=== PATIENT | male | born 1955 | race Caucasian/White ===

== ENCOUNTER 2022-08-08 17:31 | Emergency (ER) | payer MEDICARE, OTHER ==
--- NOTE | 2022-08-08 17:51 | ERPHSYRPT ---
- History of Present Illness Historian: patient Exam Limitations: no limitations Timing/Duration: day(s) (3) Activities at Onset: none Severity of Pain-Max: none Severity of Pain-Current: none Associated Symptoms: shortness of breath, weakness, No chest pain, No nausea, No syncope Previous symptoms: same symptoms as today, recent hospitalization <TASNEEM BAUER - Last Filed: 08/08/22 19:28> <VIC NAVARRETE - Last Filed: 08/08/22 21:47> - History of Present Illness Time Seen by Provider: 08/08/22 17:51 Physician History: 67-year-old male presents emergency room with bloody stools since being discharged from [facility] 2 days ago for an upper GI bleed. Patient underwent EGD that showed no active bleeding and was placed on Protonix daily with outpatient follow-up. She has continued to have bloody stools since discharge and over the past 2 days has become increasingly short of breath without chest pain. He does take Xarelto for atrial fibrillation. Patient denies any dizziness or lightheadedness at this time. (TASNEEM BAUER) Allergies/Adverse Reactions: sulfamethoxazole [From Bactrim] Allergy (Verified 08/08/22 17:41) trimethoprim [From Bactrim] Allergy (Verified 08/08/22 17:41) Home Medications: Atorvastatin Calcium [Lipitor 40Mg] 40 mg PO HS 08/08/22 [History] Cetirizine HCl [Zyrtec] 10 mg PO DAILY 08/08/22 [History] Digoxin 250 mcg PO DAILY 08/08/22 [History] Fenofibrate 160 mg PO HS 08/08/22 [History] Lisinopril/Hydrochlorothiazide [Lisinopril-Hctz 20-25 mg Tab] 0.5 tab PO DAILY 08/08/22 [History] Multivitamin [Multivitamins] 1 tab PO DAILY 08/08/22 [History] Niacin (Inositol Niacinate) [Niacin 500 mg Capsule] 500 mg PO HS 08/08/22 [History] PANTOPRAZOLE 40 mg Tablet [Protonix 40MG Tablet] 40 mg PO DAILY 08/08/22 [History] Primidone 250 mg PO TID 08/08/22 [History] Propranolol HCl [Propranolol HCl ER] 60 mg PO DAILY 08/08/22 [History] Rivaroxaban 10 mg Tablet [Xarelto 10 mg Tablet] 20 mg PO HS 08/08/22 [History] dilTIAZem HCL [Diltiazem ER] 240 mg PO DAILY 08/08/22 [History] - Review of Systems Constitutional: No Symptoms Eyes: No Symptoms Ears, Nose, & Throat: No Symptoms Respiratory: Dyspnea on Exertion (CASAS) Cardiac: No Symptoms Abdominal/Gastrointestinal: Melena, Appetite Changes Genitourinary Symptoms: No Symptoms Musculoskeletal: No Symptoms Skin: No Symptoms Neurological: No Symptoms Psychological: No Symptoms Endocrine: No Symptoms Hematologic/Lymphatic: Anemia Immunological/Allergic: No Symptoms All Other Systems: Reviewed and Negative <TASNEEM BAUER - Last Filed: 08/08/22 19:28> - Physical Exam General Appearance: no apparent distress Eye Exam: pale conjunctivae Ears, Nose, Throat Exam: normal ENT inspection Neck Exam: normal inspection, full range of motion Respiratory Exam: normal breath sounds, lungs clear, airway intact, No respiratory distress Cardiovascular Exam: regular rate/rhythm, normal peripheral pulses, capillary refill <2 sec Gastrointestinal/Abdomen Exam: soft, normal bowel sounds, No tenderness Extremity Exam: normal inspection, normal range of motion, No swelling, No tenderness Neurologic Exam: alert, oriented x 3, cooperative Skin Exam: warm, dry, pale SpO2 Interpretation: normal O2 Delivery: Room Air <TASNEEM BAUER - Last Filed: 08/08/22 19:28> - Nursing Vital Signs Nursing Vital Signs: Initial Vital Signs Temperature 98.4 F 08/08/22 17:46 Pulse Rate 92 H 08/08/22 17:46 Respiratory Rate 22 08/08/22 17:46 Blood Pressure 152/71 08/08/22 17:46 O2 Sat by Pulse Oximetry 97 08/08/22 17:46 Pain Scale Pain Intensity 4 - Course Nursing assessment & vital signs reviewed: Yes <TASNEEM BAUER - Last Filed: 08/08/22 19:28> Ordered Tests: Active Orders 24 hr Category Date Time Status AMA [Release AMA] OM.NOW Care 08/08/22 21:33 Active Research Dietitian STAT Care 08/08/22 17:52 Active IV Insertion STAT Care 08/08/22 17:51 Active IV Insertion-2nd Peripheral STAT Care 08/08/22 17:51 Active CBC W DIFF Stat Lab 08/08/22 17:55 Completed CMP Stat Lab 08/08/22 17:55 Completed Lactic Acid Stat Lab 08/08/22 18:10 Completed PROTIME WITH INR Stat Lab 08/08/22 17:55 Completed PTT Stat Lab 08/08/22 17:55 Completed UA W/RFX UR CULTURE Stat Lab 08/08/22 17:55 Completed Medication Summary Discontinued Medications Generic Name Dose Route Start Last Admin Trade Name Roseanne PRN Reason Stop Dose Admin Pantoprazole Sodium 40 mg 08/08/22 17:57 08/08/22 18:07 Pantoprazole 40 Mg Vial IV 08/08/22 17:58 40 mg STAT ONE Administration Pantoprazole Sodium Confirm 08/08/22 18:03 Pantoprazole 40 Mg Vial Administered 08/08/22 18:04 Dose 40 mg IV .[employer] ONE Lab/Rad Data: Laboratory Result Diagrams 08/08/22 17:55 08/08/22 17:55 Laboratory Results 08/08/22 08/08/22 08/08/22 Range/Units 18:10 17:55 17:55 WBC (4.0-10.5) x10^3/uL RBC (4.1-5.6) x10^6/uL Hgb (12.5-18.0) g/dL Hct (42-50) % MCV (78-100) fL MCH (26-32) pg MCHC (32-36) g/dL RDW (11.5-14.0) % Plt Count (150-450) x10^3/uL MPV (7.5-11.0) fL Gran % (36.0-66.0) % Immature Gran % (Auto) (0.00-0.4) % Nucleat RBC Rel Count (0.00-0.1) % Eos # (Auto) (0-0.5) x10^3/uL Immature Gran # (Auto) (0.00-0.03) x10^3u/L Absolute Lymphs (auto) (1.0-4.6) x10^3/uL Absolute Monos (auto) (0.0-1.3) x10^3/uL Absolute Nucleated RBC (0.00-0.01) x10^3u/L Lymphocytes % (24.0-44.0) % Monocytes % (0.0-12.0) % Eosinophils % (0.00-5.0) % Basophils % (0.0-0.4) % Absolute Granulocytes (1.4-6.9) x10^3/uL Basophils # (0-0.4) x10^3/uL PT (9.4-12.5) SECONDS INR (0.8-3.0) APTT (25.1-36.5) SECONDS Sodium (137-145) mmol/L Potassium (3.5-5.1) mmol/L Chloride (98-107) mmol/L Carbon Dioxide (22-30) mmol/L Anion Gap (5-15) MEQ/L BUN (9-20) mg/dL Creatinine (0.66-1.25) mg/dL Estimated GFR ML/MIN Glucose (74-106) mg/dL Lactic Acid 1.3 (0.4-2.0) Calcium (8.4-10.2) mg/dL Total Bilirubin (0.2-1.3) mg/dL AST (17-59) U/L ALT (0-50) U/L Alkaline Phosphatase (38-126) U/L Serum Total Protein (6.3-8.2) g/dL Albumin (3.5-5.0) g/dL Urine Color (Yellow) Urine Appearance (Clear) Urine pH (4.6-8.0) Ur Specific [place] (1.005-1.030) Urine Protein (Negative) Urine Glucose (UA) (Negative) mg/dL Urine Ketones (Negative) Urine Blood (Negative) Urine Nitrite (Negative) Urine Bilirubin (Negative) Urine Urobilinogen (0.2) mg/dL Ur Leukocyte Esterase (Negative) U Hyaline Cast (Auto) (0-2) /LPF Urine Microscopic RBC (0-5) /HPF Urine Microscopic WBC (0-5) /HPF Ur Epithelial Cells (None Seen) /HPF Urine Bacteria (None Seen) /HPF Urine Culture Reflexed (NO) ABO Group O Rh Factor POSITIVE Antibody Screen NEGATIVE (NEGATIVE) Crossmatch COMPATIBLE COMPATIBLE (COMPATIBLE) 08/08/22 08/08/22 08/08/22 Range/Units 17:55 17:55 17:55 WBC 4.9 (4.0-10.5) x10^3/uL RBC 2.21 L (4.1-5.6) x10^6/uL Hgb 6.8 L* (12.5-18.0) g/dL Hct 21.0 L (42-50) % MCV 95.0 (78-100) fL MCH 30.8 (26-32) pg MCHC 32.4 (32-36) g/dL RDW 15.7 H (11.5-14.0) % Plt Count 356 (150-450) x10^3/uL MPV 10.0 (7.5-11.0) fL Gran % 45.8 (36.0-66.0) % Immature Gran % (Auto) 0.8 H (0.00-0.4) % Nucleat RBC Rel Count 1.2 H (0.00-0.1) % Eos # (Auto) 0.14 (0-0.5) x10^3/uL Immature Gran # (Auto) 0.04 H (0.00-0.03) x10^3u/L Absolute Lymphs (auto) 1.66 (1.0-4.6) x10^3/uL Absolute Monos (auto) 0.74 (0.0-1.3) x10^3/uL Absolute Nucleated RBC 0.06 H (0.00-0.01) x10^3u/L Lymphocytes % 34.1 (24.0-44.0) % Monocytes % 15.2 H (0.0-12.0) % Eosinophils % 2.9 (0.00-5.0) % Basophils % 1.2 (0.0-0.4) % Absolute Granulocytes 2.23 (1.4-6.9) x10^3/uL Basophils # 0.06 (0-0.4) x10^3/uL PT 10.7 (9.4-12.5) SECONDS INR 0.98 (0.8-3.0) APTT 21.5 L (25.1-36.5) SECONDS Sodium 139 (137-145) mmol/L Potassium 3.5 (3.5-5.1) mmol/L Chloride 104 (98-107) mmol/L Carbon Dioxide 25 (22-30) mmol/L Anion Gap 12.4 (5-15) MEQ/L BUN 18 (9-20) mg/dL Creatinine 0.76 (0.66-1.25) mg/dL Estimated GFR > 60.0 ML/MIN Glucose 107 H (74-106) mg/dL Lactic Acid (0.4-2.0) Calcium 8.9 (8.4-10.2) mg/dL Total Bilirubin 0.20 (0.2-1.3) mg/dL AST 36 (17-59) U/L ALT 32 (0-50) U/L Alkaline Phosphatase 36 L (38-126) U/L Serum Total Protein 6.8 (6.3-8.2) g/dL Albumin 3.9 (3.5-5.0) g/dL Urine Color (Yellow) Urine Appearance (Clear) Urine pH (4.6-8.0) Ur Specific [place] (1.005-1.030) Urine Protein (Negative) Urine Glucose (UA) (Negative) mg/dL Urine Ketones (Negative) Urine Blood (Negative) Urine Nitrite (Negative) Urine Bilirubin (Negative) Urine Urobilinogen (0.2) mg/dL Ur Leukocyte Esterase (Negative) U Hyaline Cast (Auto) (0-2) /LPF Urine Microscopic RBC (0-5) /HPF Urine Microscopic WBC (0-5) /HPF Ur Epithelial Cells (None Seen) /HPF Urine Bacteria (None Seen) /HPF Urine Culture Reflexed (NO) ABO Group Rh Factor Antibody Screen (NEGATIVE) Crossmatch (COMPATIBLE) 08/08/22 Range/Units 17:55 WBC (4.0-10.5) x10^3/uL RBC (4.1-5.6) x10^6/uL Hgb (12.5-18.0) g/dL Hct (42-50) % MCV (78-100) fL MCH (26-32) pg MCHC (32-36) g/dL RDW (11.5-14.0) % Plt Count (150-450) x10^3/uL MPV (7.5-11.0) fL Gran % (36.0-66.0) % Immature Gran % (Auto) (0.00-0.4) % Nucleat RBC Rel Count (0.00-0.1) % Eos # (Auto) (0-0.5) x10^3/uL Immature Gran # (Auto) (0.00-0.03) x10^3u/L Absolute Lymphs (auto) (1.0-4.6) x10^3/uL Absolute Monos (auto) (0.0-1.3) x10^3/uL Absolute Nucleated RBC (0.00-0.01) x10^3u/L Lymphocytes % (24.0-44.0) % Monocytes % (0.0-12.0) % Eosinophils % (0.00-5.0) % Basophils % (0.0-0.4) % Absolute Granulocytes (1.4-6.9) x10^3/uL Basophils # (0-0.4) x10^3/uL PT (9.4-12.5) SECONDS INR (0.8-3.0) APTT (25.1-36.5) SECONDS Sodium (137-145) mmol/L Potassium (3.5-5.1) mmol/L Chloride (98-107) mmol/L Carbon Dioxide (22-30) mmol/L Anion Gap (5-15) MEQ/L BUN (9-20) mg/dL Creatinine (0.66-1.25) mg/dL Estimated GFR ML/MIN Glucose (74-106) mg/dL Lactic Acid (0.4-2.0) Calcium (8.4-10.2) mg/dL Total Bilirubin (0.2-1.3) mg/dL AST (17-59) U/L ALT (0-50) U/L Alkaline Phosphatase (38-126) U/L Serum Total Protein (6.3-8.2) g/dL Albumin (3.5-5.0) g/dL Urine Color Yellow (Yellow) Urine Appearance Clear (Clear) Urine pH 5.5 (4.6-8.0) Ur Specific [place] 1.025 (1.005-1.030) Urine Protein Negative (Negative) Urine Glucose (UA) Negative (Negative) mg/dL Urine Ketones Trace A (Negative) Urine Blood Negative (Negative) Urine Nitrite Negative (Negative) Urine Bilirubin Negative (Negative) Urine Urobilinogen 0.2 (0.2) mg/dL Ur Leukocyte Esterase Negative (Negative) U Hyaline Cast (Auto) NONE SEEN (0-2) /LPF Urine Microscopic RBC 0-2 (0-5) /HPF Urine Microscopic WBC 0-2 (0-5) /HPF Ur Epithelial Cells None Seen (None Seen) /HPF Urine Bacteria None Seen (None Seen) /HPF Urine Culture Reflexed NO (NO) ABO Group Rh Factor Antibody Screen (NEGATIVE) Crossmatch (COMPATIBLE) - Progress Progress: unchanged <TASNEEM BAUER - Last Filed: 08/08/22 19:28> - Progress Counseled pt/family regarding: lab results, diagnosis <VIC NAVARRETE - Last Filed: 08/08/22 21:47> - Progress Progress Note: Patient's initial hemoglobin was 6.8 with hematocrit of 21. Patient was typed and screened on arrival so 2 units of packed red blood cells were ordered for transfusion. Patient would like to remain at this facility for admission. (TASNEEM BAUER) Patient endorsed to Dr. Navarrete at approximately [address] Navarrete advised to speak to Dr. Lezama to see if he is willing to accept consultation/admission. Spoke to Dr. Lezama at 9:[address] Lezama declined consultation advised transfer to [facility]. Dr. Lezama feels that patient may need cardiology service to help adjust his Xarelto which he is on for atrial fibrillation. He is also concerned regarding the profound anemia potentially causing angina/ischemia and a known cardiac patient. We do not have cardiology services here he advised transfer to [place]. We contacted [facility]. Unit states the wait is 1.5 days at the earliest. Patient and decided that they would drive themselves to [place] ER for admission. They have decided to leave AGAINST MEDICAL ADVICE. Patient is of sound mind. P atient is appropriate to make informed and independent medical decisions. Patient understands that leaving AGAINST MEDICAL ADVICE can result in delayed diagnosis, increased risk of morbidity, mortality, short and long-term disability including . In spite of these risks, patient has decided to leave AGAINST MEDICAL ADVICE. Patient understands that he may return to our ED at any point if he reconsiders. Patient agrees to follow-up with his or her primary care doctor within 48 hours for reevaluation. Patient voices no other complaints or concerns at this time. We will release patient AGAINST MEDICAL ADVICE per their request. 08/08/22 21:34 Patient is 67-year-old male presents to our ED for evaluation of rectal bleeding during bowel movements. Patient recently discharged from [facility] 2 days ago for melanotic stools. Patient presents to our ED due to worsening shortness of breath. Testing includes CBC CMP. CBC reveals a hemoglobin of 6.8. CBC noncontributory. Lactic acid within normal limits. Coags within normal limits. Urinalysis negative. Patient received a dose of pantoprazole IV. Type and screen ordered. Patient has yet to receive blood products. Patient will leave our hospital AMA and drive himself to [facility]. at bedside is a nurse at [facility]. she voices no other complaints or concerns at this time. Patient is diagnosis is lower GI bleed and symptomatic anemia. Complexity of problem addressed is high, severe exacerbation of GI bleed threatening bodily function. Complex of data reviewed and analyzed is extensive. Test ordered test reviewed and analyzed. Clinical correlation between laboratory findings and clinical findings completed. It appears that patient's shortness of breath is due to the profound anemia caused by lower GI bleed. Plan of care discussed with Dr. Omari Lezama of general surgery who advises transfer to higher level of care. [facility] unable to accommodate our patient the patient will leave our facility AGAINST MEDICAL ADVICE and drive himself to [facility]. Risk of complication and or risk morbidity/mortality patient management is moderate. Patient received IV pantoprazole for lower GI bleed. Patient will leave AMA. Vital stable. Plan to leave AMA was determined by patient and his . No social determinants of health present to impede follow-up or presentation to [facility]. Patient discharged AGAINST MEDICAL ADVICE prior to blood transfusion. Portions of this note were created with voice recognition technology. There may be grammatical, spelling, punctuation or sound alike errors 08/08/22 21:39 (VIC NAVARRETE) <TASNEEM BAUER - Last Filed: 08/08/22 19:28> - Departure Departure Disposition: AMA Critical Care Time: No <VIC NAVARRETE - Last Filed: 08/08/22 21:47> - Departure Clinical Impression: Symptomatic anemia, Lower GI bleed Condition: Stable Referrals: DELL MCCONNELL MD [Primary Care Provider] - Follow up/PCP as directed Additional Instructions: Discharge/Care Plan KARTHIK LANDEROS was seen on 08/08/22 in the Emergency Room. The patient was counseled regarding Diagnosis,Lab results, Imaging studies, need for follow up and when to return to the Emergency Room. Prescriptions given: Discharge Note I have spoken with the patient and/or caregivers. I have explained the patient's condition, diagnosis and treatment plan based on the information available to me at this time. I have answered the patient's and/or caregiver's questions and addressed any concerns. The patient and/or caregivers have as good understanding of the patient's diagnosis, condition and treatment plan as can be expected at this point. The vital signs have been stable. The patient's condition is stable and appropriate for discharge from the emergency department. The patient will pursue further outpatient evaluation with the primary care physician or other designated or consulting physician as outlined in the discharge instructions. The patient and/or caregivers are agreeable to this plan of care and follow-up instructions have been explained in detail. The patient and/or caregivers have received these instruction. The patient/and or caregivers are aware that any significant change in condition or worsening of symptoms should prompt an immediate return to this or the closest emergency department or call 911.
[2022-08-08] MEDS ORDERED: PROTONIX 40 MG IV IV ONE ×2 (17:57→18:03)
[2022-08-08 18:10] LABS: Absolute Neutrophil Ct (ANC) 2.23 x10^3/uL (1.4-6.9); BASOPHIL % 1.2 % (0.0-0.4); Basophil (Absolute #) 0.06 x10^3/uL (0-0.4); Eosinophil % 2.9 % (0.00-5.0); Eosinophil (Absolute #) 0.14 x10^3/uL (0-0.5); IMMATURE GRAN # 0.04 x10^3u/L (0.00-0.03); IMMATURE GRAN % 0.8 % (0.00-0.4); Lymphocyte (Absolute #) 1.66 x10^3/uL (1.0-4.6); Lymphocytes % 34.1 % (24.0-44.0); Mean Corpuscular Hemoglobin 30.8 pg (26-32); Mean Corpuscular Hgb Concent. 32.4 g/dL (32-36); Monocyte (Absolute #) 0.74 x10^3/uL (0.0-1.3); Monocytes % 15.2 % (0.0-12.0); NUCLEATED RBC # 0.06 x10^3u/L (0.00-0.01); NUCLEATED RBC % 1.2 % (0.00-0.1); Neutrophil % 45.8 % (36.0-66.0); Platelet Count 356 x10^3/uL (150-450); Red Blood Count 2.21 x10^6/uL (4.1-5.6); Red Cell Distribution Width 15.7 % (11.5-14.0); White Blood Count 4.9 x10^3/uL (4.0-10.5)
[2022-08-08 18:13] LABS: Appearance Clear (Clear); Bacteria None Seen /HPF (None Seen); Bilirubin Negative (Negative); Blood Negative (Negative); Epithelial Cells None Seen /HPF (None Seen); Glucose, Urine Negative (Negative); Hyaline Casts NONE SEEN /LPF (0-2); Ketones Trace (Negative); Leukocyte Esterase Negative (Negative); Nitrite Negative (Negative); Ph 5.5 (4.6-8.0); Protein,Urine Dip Negative (Negative); RBC 0-2 /HPF (0-5); Specific Gravity 1.025 (1.005-1.030); Urobilinogen 0.2 mg/dL (0.2); WBC 0-2 /HPF (0-5)
[2022-08-08 18:17] LABS: Hemoglobin 6.8 g/dL (12.5-18.0)
[2022-08-08 18:18] LABS: ADD URINE CULTURE? NO (NO)
[2022-08-08 18:19] LABS: INR 0.98 (0.8-3.0); PROTIME 10.7 SECONDS (9.4-12.5); PTT 21.5 SECONDS (25.1-36.5)
[2022-08-08 18:43] LABS: ALBUMIN 3.9 g/dL (3.5-5.0); ALKALINE PHOSPHATASE 36 U/L (38-126); ANION GAP 12.4 MEQ/L (5-15); BLOOD UREA NITROGEN 18 mg/dL (9-20); CHLORIDE 104 mmol/L (98-107); Calcium 8.9 mg/dL (8.4-10.2); Carbon Dioxide 25 mmol/L (22-30); Creatinine 1 0.76 mg/dL (0.66-1.25); EST GLOMERULAR FILTRATION RATE > 60.0 ML/MIN; Glucose 107 mg/dL (74-106); Potassium 3.5 mmol/L (3.5-5.1); SGOT/AST 36 U/L (17-59); SGPT/ALT 32 U/L (0-50); SODIUM 139 mmol/L (137-145); Total Protein 6.8 g/dL (6.3-8.2)
[2022-08-08 20:59] LABS: ABO TYPING O
[2022-08-08 21:00] LABS: Antibody Screen NEGATIVE (NEGATIVE); RH TYPING POSITIVE
[2022-08-08 21:01] LABS: CROSS MATCH (PRBC) COMPATIBLE (COMPATIBLE)
[2022-08-08 21:07] VITALS: BP 120/71; PULSE 96; O2SAT 99
== END 2022-08-08 21:41 | disposition left against medical advice (07) ==
LOC: ED 17:31
DX: K92.2 Gastrointestinal hemorrhage, unspecified (principal); D64.9 Anemia, unspecified; K92.1 Melena; R06.02 Shortness of breath; Z79.01 Long term (current) use of anticoagulants; Z79.899 Other long term (current) drug therapy
CPT/HCPCS: 36000; 36415; 80053; 81001; 83605; 85025; 85610; 85730; 86850; 86900; 86901; 86922; 93041; 96374; 99284